=== PATIENT | female | born 1960 | race Caucasian/White ===

== ENCOUNTER 2021-09-21 10:53 | Day surgery (SDC) | payer BC ==
--- NOTE | 2021-09-20 09:12 | RAD REPORT ---
EXAM DESCRIPTION: RAD - Chest Pa And Lat (2 Views) - 09/20/2021 9:07 am CLINICAL HISTORY: Pre Op pending hand surgery Chest pain. COMPARISON: Chest Single View dated 08/20/2017 FINDINGS: The lungs are clear. The heart is normal in size. No displaced fractures. IMPRESSION: No acute or concerning finding suspected.
[2021-09-20 09:30] LABS: Urine Appearance CLOUDY (Clear); Urine Bilirubin NEGATIVE (Negative); Urine Blood NEGATIVE (Negative); Urine Color YELLOW (Yellow); Urine Glucose NEGATIVE (Negative); Urine Protein NEGATIVE (Negative); Urine Specific Gravity <=1.005 (1.005-1.030); Urine Urobilinogen 0.2 mg/dL (0.2-1.0)
[2021-09-20 09:33] LABS: Urine Microscopic Reflex NO UMIC
[2021-09-20 09:34] LABS: Absolute Lymphocytes (CBC) 3.3 K/uL (0.7-4.9); Basophils % 0.4 % (0-1.3); Hematocrit 41.3 % (36.0-45.0); Lymphocytes % 41.1 % (15.3-44.8); MPV 9.1 fL (7.6-11.3); RBC Red Blood Cell Count 4.56 M/uL (3.86-4.86)
[2021-09-21] MEDS ORDERED: Ringers Lactate 1,000 ML IV ONE (11:13)
[2021-09-21] MEDS ORDERED: CEFAZOLIN/NS 1gm 1 GM/50 ML BAG ONE (11:13)
--- NOTE | 2021-09-21 11:23 | EKG ---
Test Date: 2021-09-20 Test Time: 08:53:34 Grassroots Organizer: MIRTA MEASUREMENT RESULTS: Intervals: Rate: 68 [place]: 168 QRSD: 84 QT: 436 QTc: 463 [place]: P: 75 [place]: 168 QRS: 79 T: 45 INTERPRETIVE STATEMENTS: Normal sinus rhythm Normal ECG Compared to ECG 08/20/2017 20:37:48 Sinus bradycardia no longer present T-wave abnormality no longer present Electronically Signed On 09-21-21 11:20:32 PRODUCTION OPERATOR by Augustin Marinelli
[2021-09-21] MEDS ORDERED: KETOROLAC 30 MG/ML INJ ONE (11:43)
[2021-09-21] MEDS ORDERED: FENTANYL CITR 100 MCG/2 ML ONE (11:43)
[2021-09-21] MEDS ORDERED: dexAMETHasone 10 MG/ML VIAL ONE (11:43)
[2021-09-21] MEDS ORDERED: LIDOCAINE 2% MPF 5 ML VIAL ONE (11:43)
[2021-09-21] MEDS ORDERED: propofoL 200 MG/20 ML VIAL IV ONE (11:43)
[2021-09-21] MEDS ORDERED: MIDAZOLAM HCL 2 MG/2 ML INJ ONE (11:43)
[2021-09-21] MEDS ORDERED: ONDANSETRON 4 MG/2 ML VIAL ONE (11:44)
[2021-09-21] MEDS ORDERED: Mastisol Adhesive Liq ONE (13:04)
[2021-09-21] MEDS: MORPHINE 4 MG/ML SYR ONE ×2 (13:27→13:35)
[2021-09-21] MEDS: HYDROMORPHONE HCL 1 MG/ML INJ ONE ×2 (13:41→13:49)
[2021-09-21 13:47] VITALS: TEMP 97.4
[2021-09-21 14:07] VITALS: BP 120/67; O2SAT 96
[2021-09-21] MEDS ORDERED: HYDROCODONE/APAP 10/325 TAB ONE (14:08)
--- NOTE | 2021-09-21 17:18 | OP ---
Surgeon: Sy Simon MD Preoperative Diagnosis: Bony exostosis of the second dorsal metacarpal, left hand. Postoperative Diagnosis: Bony exostosis of the second dorsal metacarpal, left hand. Procedure: Excision of bony exostosis. Anesthesia: General. Procedure In Detail: After satisfactory induction of general anesthesia, left arm prepped with Betad ine scrub and paint. Dry sterile drapes placed in the usual manner. The arm was elevated, exsanguin ated with an Esmarch, tourniquet inflated to 250 mmHg. A curvilinear incision was made over the seco nd metacarpal base, dissection down and was retracted. The periosteum was incised with a scalpel and flaps elevated. was used to excise the exostosis. Rongeur was used on edges and then th e tourniquet released. was closed with 4-0 Vicryl. Wound closed with 4-0 PDS upside down running locking. Dressings consisted of tincture of benzoin, Steri-Strips, . The patient tolerated the procedure well and returned to recovery. HARIS/TRACY Voice ID: [id number] Report ID: [id number]
== END 2021-09-21 14:35 | disposition home or self-care (01) ==
LOC: OR 10:53
PROVIDERS: ATTEND Specialist
PROC: 0PBQ0ZZ Excision of Left Metacarpal, Open Approach (ICD-10-PCS; principal; 2021-09-21 12:00)
DX: M89.9 Disorder of bone, unspecified (principal); Z20.822 Contact with and (suspected) exposure to COVID-19
CPT/HCPCS: 93005; 85025; 36415; 88305; 88311; 81003; 71046; 26200; U0003; J2704; J2250; J3010; J1100; J1170; J0690; J7120; J2405